=== PATIENT | male | born 1970 | race Hispanic/Latino ===

== ENCOUNTER 2021-03-30 08:52 | Outpatient (CLI) | payer SELFPAY | END 2021-03-30 08:53 | disposition home or self-care (01) | LOC: CSHWCC 08:52 | PROVIDERS: ATTEND Nurse Practitioner Family | DX: T81.89XD Other complications of procedures, not elsewhere classified, subsequent encounter (principal); E11.628 Type 2 diabetes mellitus with other skin complications; E66.01 Morbid (severe) obesity due to excess calories; I10 Essential (primary) hypertension; J44.9 Chronic obstructive pulmonary disease, unspecified; S31.000D Unspecified open wound of lower back and pelvis without penetration into retroperitoneum, subsequent encounter; S31.809D Unspecified open wound of unspecified buttock, subsequent encounter; Z85.9 Personal history of malignant neoplasm, unspecified | CPT/HCPCS: 97607; 99213; G0463 ==

== ENCOUNTER 2021-04-06 08:07 | Outpatient (CLI) | payer SELFPAY | END 2021-04-06 08:08 | disposition home or self-care (01) | LOC: CSHWCC 08:07 | PROVIDERS: ATTEND Nurse Practitioner Family | DX: T81.89XD Other complications of procedures, not elsewhere classified, subsequent encounter (principal); E11.628 Type 2 diabetes mellitus with other skin complications; S31.000D Unspecified open wound of lower back and pelvis without penetration into retroperitoneum, subsequent encounter; S31.809D Unspecified open wound of unspecified buttock, subsequent encounter; J44.9 Chronic obstructive pulmonary disease, unspecified; I10 Essential (primary) hypertension; E66.01 Morbid (severe) obesity due to excess calories; Z85.9 Personal history of malignant neoplasm, unspecified | CPT/HCPCS: 97607; 99213; G0463 ==

== ENCOUNTER 2021-04-11 11:24 | Outpatient (CLI) | payer SELFPAY | END 2021-04-11 11:25 | disposition home or self-care (01) | LOC: CSHWCC 11:24 | PROVIDERS: ATTEND Nurse Practitioner Family | DX: T81.89XD Other complications of procedures, not elsewhere classified, subsequent encounter (principal); S31.000D Unspecified open wound of lower back and pelvis without penetration into retroperitoneum, subsequent encounter; S31.809D Unspecified open wound of unspecified buttock, subsequent encounter; E11.628 Type 2 diabetes mellitus with other skin complications; E66.01 Morbid (severe) obesity due to excess calories; J44.9 Chronic obstructive pulmonary disease, unspecified; I10 Essential (primary) hypertension; Z85.9 Personal history of malignant neoplasm, unspecified | CPT/HCPCS: 97607; 99213; G0463 ==

== ENCOUNTER 2021-04-19 09:47 | Outpatient (CLI) | payer SELFPAY | END 2021-04-19 09:48 | disposition home or self-care (01) | LOC: CSHWCC 09:47 | PROVIDERS: ATTEND Nurse Practitioner Family | DX: T81.89XD Other complications of procedures, not elsewhere classified, subsequent encounter (principal); S31.000D Unspecified open wound of lower back and pelvis without penetration into retroperitoneum, subsequent encounter; S31.809D Unspecified open wound of unspecified buttock, subsequent encounter; J44.9 Chronic obstructive pulmonary disease, unspecified; E11.628 Type 2 diabetes mellitus with other skin complications; I10 Essential (primary) hypertension; E66.01 Morbid (severe) obesity due to excess calories; Z85.9 Personal history of malignant neoplasm, unspecified | CPT/HCPCS: 99213; G0463 ==